=== PATIENT | female | born 1995 | race Two or more races ===

== ENCOUNTER 2018-01-27 15:11 | Emergency (ER) | payer SELFPAY ==
[2018-01-27 15:41] LABS: URINE HCG POC HCG NEGATIVE (Negative)
[2018-01-27 15:56] LABS: BILIRUBIN,URINE NEGATIVE (NEG); CLARITY,URINE CLEAR; COLOR,URINE YELLOW; GLUCOSE,URINE NEGATIVE (NEG); NITRITE,URINE NEGATIVE (NEG); PROTEIN,URINE NEGATIVE (NEG-TRACE)
[2018-01-27 16:07] LABS: BACTERIA,URINE FEW /HPF (0-FEW); RBC,URINE 0 /HPF (0-2); SQUAMOUS EPITHELIAL CELL,UR MOD /LPF; WBC,URINE OCC /HPF (0-4)
[2018-01-27] MEDS: ONDANSETRON ODT 4 MG TAB.RAPDIS. PO (16:32)
== END 2018-01-27 17:14 | disposition home or self-care (01) ==
LOC: ER 17:14
DX: R10.9 Unspecified abdominal pain (principal); R11.0 Nausea; Z88.8 Allergy status to other drugs, medicaments and biological substances
CPT/HCPCS: 81001; 81025; 99283; Q0162

== ENCOUNTER 2018-03-06 16:44 | Emergency (ER) | payer SELFPAY ==
[~2018-03-06] VITALS: Ht 154.9 cm; Wt 65.8 kg
[~2018-03-06 16:44] MED LIST: ONDA4TAB10 SL
[2018-03-06 17:03] VITALS: BP 114/62
--- NOTE | 2018-03-06 17:06 | PHYS DOC ---
Past Medical History Past Medical History: Cancer, Other Additional Past Medical Histor: thyroid cancer- with radiation Past Surgical History: Other Additional Past Surgical Histo: thyroidectomy Alcohol Use: None Drug Use: None Adult General Chief Complaint Chief Complaint: PAIN ON URINATION [facility] HPI Patient is a 23 year old female presents to the ED complaining of dysuria 2 days. Patient states she was on her LMP 4 days ago. Describes the pain as burning. Rates the pain as 4 out of 10. States she's had similar symptoms in the past. Denies STD exposure, vaginal discharge/bleeding, back pain, fever, hematuria, diarrhea, abdominal pain, nausea/vomiting, chest pain or shortness of breath. Review of Systems Review of Systems Constitutional: Denies fever or chills [] Respiratory: Denies cough or shortness of breath [] Cardiovascular: No additional information not addressed in HPI [] GI: Denies abdominal pain, nausea, vomiting, bloody stools or diarrhea [] : Complains of dysuria. Denies hematuria [] Musculoskeletal: Denies back pain or joint pain [] Integument: Denies rash or skin lesions [] Neurologic: Denies headache, focal weakness or sensory changes [] All other systems were reviewed and found to be within normal limits, except as documented in this note. Allergies Allergies Allergies Coded Allergies Type Severity Reaction Last Updated Verified adhesive tape Allergy Intermediate 01/27/18 Yes Physical Exam Physical Exam Constitutional: Well developed, well nourished, no acute distress, non-toxic appearance. [] HENT: Normocephalic, atraumatic Cardiovascular:Heart rate regular rhythm, no murmur [] Lungs & Thorax: Bilateral breath sounds clear to auscultation [] Abdomen: Bowel sounds normal, soft, no tenderness, no masses, no pulsatile masses. [] Skin: Warm, dry, no erythema, no rash. [] Back: No tenderness, no CVA tenderness. [] Extremities: No tenderness, no cyanosis, no clubbing, ROM intact, no edema. [] Neurologic: Alert and oriented X 3, normal motor function, normal sensory function, no focal deficits noted. [] Psychologic: Affect normal, judgement normal, mood normal. [] Current Patient Data Vital Signs Vital Signs Date Time Temp Pulse Resp B/P (MAP) Pulse Ox O2 Delivery O2 Flow Rate FiO2 03/06/18 17:03 98.4 57 16 114/62 (79) 97 Room Air 98.4 Lab Values Laboratory Tests Test 03/06/18 17:00 Urine Collection Type Clean catch Urine Color Yellow Urine Clarity Clear Urine pH 6.5 Urine Specific [place] 1.025 Urine Protein 30 mg/dL (NEG-TRACE) Urine Glucose (UA) Negative mg/dL (NEG) Urine Ketones (Stick) Negative mg/dL (NEG) Urine Blood Small (NEG) Urine Nitrite Positive (NEG) Urine Bilirubin Negative (NEG) Urine Urobilinogen Dipstick 1.0 mg/dL (0.2 mg/dL) Urine Leukocyte Esterase Large (NEG) Urine RBC Occ /HPF (0-2) Urine WBC >40 /HPF (0-4) Urine Squamous Epithelial Cells Mod /LPF Urine Bacteria Many /HPF (0-FEW) Urine Mucus Mod /LPF EKG EKG [] Radiology/Procedures Radiology/Procedures [] Course & Med Decision Making Course & Med Decision Making Pertinent Labs and Imaging studies reviewed. (See chart for details) [] Dragon Disclaimer Dragon Disclaimer This electronic medical record was generated, in whole or in part, using a voice recognition dictation system. Departure Departure Impression: Primary Impression: Urinary tract infection Disposition: HOME, SELF-CARE Condition: STABLE Referrals: NO PCP (PCP) SANDRO ANDERSON MD Patient Instructions: Urinary Tract Infection Scripts Cephalexin (CEPHALEXIN) 500 Mg Tablet 1 TAB PO TID for 10 Days, #30 TAB Prov: DOMINICK WRIGHT 03/06/18 DOMINICK WRIGHT Mar 06, 2018 17:05
[2018-03-06 17:16] LABS: BILIRUBIN,URINE NEGATIVE (NEG); CLARITY,URINE CLEAR; COLOR,URINE YELLOW; NITRITE,URINE POSITIVE (NEG); PH,URINE 6.5; PROTEIN,URINE 30 mg/dL (NEG-TRACE)
[2018-03-06 17:27] LABS: BACTERIA,URINE MANY /HPF (0-FEW); RBC,URINE OCC /HPF (0-2); SQUAMOUS EPITHELIAL CELL,UR MOD /LPF; WBC,URINE >40 /HPF (0-4)
[2018-03-06] MEDS ORDERED: CEPH500T PO (17:53)
== END 2018-03-06 18:06 | disposition home or self-care (01) ==
LOC: ER 16:44
DX: N39.0 Urinary tract infection, site not specified (principal); E89.0 Postprocedural hypothyroidism; Z88.8 Allergy status to other drugs, medicaments and biological substances
CPT/HCPCS: 81001; 99283